=== PATIENT | male | born 1955 | race Caucasian/White ===

== ENCOUNTER 2025-10-05 10:07 | Outpatient (AMB) | payer MEDICARE, BC, SELFPAY ==
--- NOTE | 2025-10-05 10:12 | A.PHYSOV_ITS ---
Vital Signs 10/05/25 10:13 Height 6 ft 1 in Weight 290 lb BMI 38.3 Intake Visit Reasons: Left knee injection Intake Note: Patient is a 70 year old male here for a left knee injection. 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 Allergies No Known Allergies Allergy (Verified 10/05/25 10:15) [facility] Surgical History Hx of tonsillectomy (Unknown) Social History Alcohol intake: current Patient Tobacco Use Status: Former Tobacco user Use of substances other than those prescribed or required for medical reasons: No Physical Exam Vital Signs: BMI result Body Mass Index 38.3 Office Procedures AMB Knee Injection AMB Knee Injection Procedure Details: Left Knee injection: The risks, benefits and complications of the left knee injection were discussed with the patient including but not limited to increased serum glucose, infection, nerve pain, fat atrophy, pigment augmentation, bleeding and pain. All questions were answered to the patient's satisfaction. Verbal consent was obtained. The patient was eager to proceed. Using aseptic technique with Betadine, ethyl chloride was then used to desensitize the skin. Using a 22-gauge needle 40 mg of Kenalog and 3 mL 2% lidocaine were injected into the knee joint. A Band-Aid was applied. Patient tolerated the procedure well without immediate complication. Postinjection instructions were given. Knee Injection - : Left All charges added?: Procedure code (CPT) selection complete Office Meds Kenalog 40 mg/mL suspension for injection Performing Provider: SABA Zimmerman [facility] Administered by: SABA Zimmerman on 10/05/25 10:38 Dose Route Admin Location Dispensed Lot Number Expiration Date [facility] Developmental Education Instructor 40 mg intra-articular 1 mL [id number] [employer] Total Dispensed Waste 1 mL 0 % lidocaine (PF) 20 mg/mL (2 %) injection solution Performing Provider: SABA Zimmerman [facility] Administered by: SABA Zimmerman on 10/05/25 10:38 Dose Route Admin Location Dispensed Lot Number Expiration Date [facility] Developmental Education Instructor 60 mg intra-articular 3 mL [id number] Total Dispensed Waste 3 mL 0 % Assessment & Plan Assessment & Plan (1) Osteoarthritis of left knee: Code(s): M17.12 - Unilateral primary osteoarthritis, left knee Category: Medical Plan Mr. Bridges is a 70-year-old male seen in evaluation today for left knee osteoarthritis. Today consented for left knee corticosteroid injection. He was given post-injection instructions, recommend: Moist heat compresses for 15 minutes 5 times daily. Continue low-impact activities such as walking, biking swimming. Follow-up in our office as needed. Thank you for allowing me to participate in the care of your patient. Orders: Orders AMB Knee Injection Today M17.12 - Unilateral primary osteoarthritis, left knee Coding Level of Care Code Procedure Only Diagnoses Osteoarthritis of left knee M17.12 CPT Codes AMB Knee Injection - Hip/Bursa Injection - : Left ([id number])
[2025-10-05 10:13] VITALS: BMI 38.3
--- OUTSIDE RECORDS SUMMARY | 2025-10-05 12:17 | XMS_ITS | Patient Health Record ---
[facility] Address [address] [facility] [place] [address] Care Team Providers Care Sales Assistant Entertainment [employer] Media Name Role Phone Agrawal, Judi Primary Care Provider Mariya Montanez Unavailable [phone] Allergies Allergen (clinical drug ingredient) Drug/Non Drug Allergy documented on EMR Reaction Allergy Type Onset Date Status Penicillin Unknown Drug Allergy Active Reason For Referral No Information Medications Medication SIG (Take, Route, Frequency, Duration) Notes Start Date End Date Status Omeprazole 20 MG 1 capsule 30 minutes before morning meal Orally Once a day; Duration: 30 day(s) Active Symbicort Active Atorvastatin Calcium 20 MG 1 tablet Oral ly Once a day; Duration: 30 day(s) Active Ammonium Lactate 12 % 1 application to a ffected area Externally to feet Twice a day; Duration: 30 days Active hydroCHLOROthiazide 25 MG 1 tablet in th e morning Orally Once a day; Duration: 30 day(s) Active amLODIPine Besylate 5 MG 1 tablet Orally Once a day; Duration: 30 day(s) Active Social History Tobacco Use: Social History Observation Description Date Details (start date - stop date) Never Smoker NA - NA Tobacco Use/Smoking Question Answer Notes Are you a: nonsmoker Additional Findings: Tobacco Non-User Cu rrent non-smoker, but past smoking history unknown Alcohol Screen Question Answer Notes Did you have a drink containing alcohol in the p ast year? Yes Points 0 Interpretation Negative Tobacco use other than smoking: Question Answer Notes Are you an other tobacco user? No Plan Of Treatment No Information Insurance Providers Payer Name Payer Address Payer Phone Subscriber Number Group Number Insured Name Patient Relationship to Insured Coverage Start Date Coverage End Date Medicare National Govt [facility] [address] [place] [address] [phone] [id number] Celso Bridges Self - patient is the insured [facility] [address] [place] [address] [phone] [id number] Celso Bridges Self - patient is the insured Medical (General) History Medical History History ICD Code asthma Back,Hip,and Knee pain Broken bones Gout High blood pressure Reflux ( GERD) Measles Mumps Chicken pox Surgical History Surgery Date(Month/Year)
--- OUTSIDE RECORDS SUMMARY | 2025-10-05 12:18 | XMS_ITS | Encounter Summary ---
Author Organization [facility] Address [address] [place] [address] Care Team Providers Care Fruit Buying Grader Name Role Phone Shay Narayan Primary Care Provider [phone] Reason for Visit * Reason Onset Date Comments left knee DUROLANE injection 09/17/2025 Encounter Details Date Type Department Care Team ([facility] st Contact Info) Description 09/17/2025 Telephone Orthopedic Surgery - [place] [address] [place] [address] Guera Trujillo [place] Social History Tobacco Use Types Packs/Day Years Used Date Smoking Tobacco: Former Cigarettes 0 Q uit: 11/22/1986 Smokeless Tobacco: Never Alcohol Use Standard Drinks/Week Comments Yes 0 (1 standard drink = 0.6 oz pur e alcohol) Housing Instability Answer Date Recorde d Are you worried that in the next 2 months you may not have stable housing? No 03/09/2025 Food Access & Nutrition Answer Date Rec orded Do you have access to a vari ety of food including fruits and vegetables? Yes 03/09/2025 Access to Healthcare Answer Date Record ed Within the last 3 months, ho w many times did you visit the emergency department for your medical care? 0 03/09/2025 Health Literacy Answer Date Recorded How often do you need to hav e someone help you when you read instructions, pamphlets, or other written material from your doctor or pharmacy? Never 03/09/2025 Caregiver: How often do you need to have someone help you when you read instructions, pamphlets, or other written material from your doctor or pharmacy? Not on file 03/09/2025 Financial Risk Answer Date Recorded How hard is it for you to pa y for the very basics like food, housing, medical care, and air conditioning / heating? Not very hard 03/09/2025 Transportation Answer Date Recorded Has the lack of transportati on kept you from meetings, work, or from getting things needed for daily living? No Has the lack of transportati on kept you from medical appointments or from getting medications? No 03/09/2025 Social Isolation Answer Date Recorded How often do you feel lonely or isolated from th ose around you? Never 03/09/2025 Food Risk Answer Date Recorded Within the past 12 months we worried whether our food would run out before we got money to buy more. Never true 03/09/2025 Within the past 12 months th e food we bought just didn't last and we didn't have money to get more. Never true 03/09/2025 Dependent Care Answer Date Recorded Do you need help finding or paying for care for your loved ones. For example, child welfare caseworker or elderly care for an older adult? No 03/09/2025 Education Answer Date Recorded Do you think completing more education or training, like finishing a GED, going to college, or learning a trade, would be helpful for you? No 03/09/2025 Employment and Income Answer Date Recor ded During the last four weeks, have you been actively looking for work? No 03/09/2025 Living Situation Answer Date Recorded What is your living situation? Unrecognized valu e 03/09/2025 Sex and Gender Information Value Date Recorded Sex Assigned at Male 10/16/2024 4:26 PM EST Legal Sex Male 10:20 AM EST Gender Identity Male 10/16/2024 4:26 PM EST Sexual Orientation Not on file documented as of this encounter Progress Notes * Guera Trujillo [place] - 09/17/2025 9:18 AM EDT Benefits request submitted via [employer], waiting for report. Note: schedule with Alicia (Visco should not be scheduled earlier than first week of November ) documented in this encounter Plan of Treatment Upcoming Encounters Date Type Department Care Team (Late st Contact Info) Description 01/28/2026 8:30 AM EDT Office Visit Pulmonology - [place] [address] [place] [address] Pierre Hilton MD [address] [place] [phone] 03/27/2026 1:00 PM EDT Office Visit Adult Medicine [facility] [address] [place] [address] Shay Narayan PA [address] [place] [phone] documented as of this encounter Visit Diagnoses Not on filedocumented in this encounter Additional Health Concerns Assessment Noted Time PHQ-9 Depression Total Score: 0 03/09/20 2:12 PM EDT A fall risk assessment has been complete d for the patient 03/13/2025 8:57 AM EDT documented as of this encounter Care Teams Fruit Buying Grader Relationship Specialty Start Date End Date Shay Narayan PA [address] [place] [address] PCP - General Internal Medicine 01/11/25 documented as of this encounter
--- OUTSIDE RECORDS SUMMARY | 2025-10-05 12:18 | XMS_ITS | Encounter Summary ---
Author Organization [facility] Address [address] [place] [address] Care Team Providers Care Pc Network Technician Name Role Phone Shay Narayan Primary Care Provider [phone] Encounter Details Date Type Department Care Team ([facility] st Contact Info) Description 08/21/2025 Results Follow-Up Adult [address] [phone] Shay Narayan PA [address] [place] [address] Social History Tobacco Use Types Packs/Day Years [...] for your loved ones. For example, child care associate teacher or elderly care for an older adult? [...] on file documented as of this encounter Plan of Treatment Upcoming Encounters Date Type Department Care Team (Late st Contact Info) Description 01/28/2026 8:30 AM EDT Office Visit Pulmonology - [address] [place] [address] Pierre Hilton MD [address] [place] [address] 03/27/2026 1:00 PM EDT Office Visit Adult Medicine [facility] [address] [place] [address] Shay Narayan PA [address] [place] [phone] documented as of this encounter Visit Diagnoses Not on filedocumented in this encounter Additional Health Concerns Assessment Noted Time PHQ-9 Depression Total Score: 0 03/09/20 2:12 PM EDT A fall risk assessment has been complete d for the patient 03/13/2025 8:57 AM EDT documented as of this encounter Care Teams Pc Network Technician Relationship Specialty Start Date End Date Shay Narayan PA [address] [place] [id number] PCP - General Internal Medicine 01/11/25 documented as of this encounter
--- OUTSIDE RECORDS SUMMARY | 2025-10-05 12:18 | XMS_ITS | Clinical Summary ---
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 TAKE 30 MINS AFTER SAME MEAL EVERY DAY. 90 capsule 025 Active rosuvastatin (CRESTOR) 20 mg tabletIndications:T ype 2 diabetes mellitus without complication, without long-term current use of insulin ([facility] V24, [facility] V28),Essential hypertension,Mixed hyperlipidemia,Manisha roesophageal reflux disease without esophagitis,Mild persistent asthma without complication,Morbid obesity ([facility] V24, [facility] V28),Benign prostatic hyperplasia with post-void dribbling,Elevated LFTs,Nonspecific elevation of levels of transaminase or lactic acid dehydrogenase (LDH) Take 1 tablet (20 mg total) by mouth 1 (one) time each day. 90 tablet 3 025 Active tirzepatide (Mounjaro) 2.5 mg/0.5 mL injectionIndication s:Type 2 diabetes mellitus without complication, without long-term current use of insulin ([facility] V24, [facility] V28),Essential hypertension,Mixed hyperlipidemia,Manisha roesophageal reflux disease without esophagitis,Mild persistent asthma without complication,Morbid obesity ([facility] V24, [facility] V28),Benign prostatic hyperplasia with post-void dribbling,Elevated LFTs,Nonspecific elevation of levels of transaminase or lactic acid dehydrogenase (LDH),Essential (primary) hypertension Inject 0.5 mL (2.5 mg total) under the skin every 7 (seven) days. 6 mL 3 025 Active omeprazole (PriLOSEC) [address] capsule Take 1 capsule (20 mg total) by mouth 1 (one) time each day. 90 capsule 3 025 Active amLODIPine (NORVASC) 5 mg tablet Take 1 tablet (5 mg total) by mouth 1 (one) time each day. 90 tablet 3 025 Active hydroCHLOROthiazide (HYDRODIURIL) 25 mg tabletIndications:E ssential (primary) hypertension Take 1 tablet (25 mg total) by mouth 1 (one) time each day. 90 tablet 3 025 Active budesonide-formoter oL (Symbicort) 160-4.5 mcg/actuation inhaler Inhale 2 Puffs into the lungs every 12 hours for 90 days. This medication has inhaler steroid: Rinse mouth with water and expectorate after each dose to prevent oral/esophage al candidiasis or fungal infection. 023 2024 Discontinued tirzepatide (Mounjaro) 2.5 mg/0.5 mL injection Inject 2.5 mg into the skin once a week. 024 2024 Discontinued(R eorder) omeprazole (PriLOSEC) [address] capsule TAKE 1 CAPSULE BY MOUTH DAILY. 90 capsule 3 025 2024 Discontinued(R eorder) rosuvastatin (CRESTOR) 20 mg tabletIndications:T ype 2 diabetes mellitus without complication, without long-term current use of insulin ([facility] V24, [facility] V28),Essential hypertension,Mixed hyperlipidemia,Manisha roesophageal reflux disease without esophagitis,Mild persistent asthma without complication,Morbid obesity ([facility] V24, [facility] V28),Benign prostatic hyperplasia with post-void dribbling,Elevated LFTs,Nonspecific elevation of levels of transaminase or lactic acid dehydrogenase (LDH) Take 1 tablet (20 mg total) by mouth 1 (one) time each day. 90 tablet 3 025 2024 Discontinued(R eorder) hydroCHLOROthiazide (HYDRODIURIL) 25 mg tabletIndications:E ssential (primary) hypertension TAKE 1 TABLET BY MOUTH EVERY DAY 90 tablet 1 025 2024 Discontinued(R eorder) amLODIPine (NORVASC) 5 mg tablet TAKE 1 TABLET BY MOUTH EVERY DAY 90 tablet 1 025 2024 Discontinued(R eorder) Active Problems Problem Noted Date Diagnosed Date Benign prostatic hyperplasia with post-void drib mark 07/06/2023 Type 2 diabetes mellitus wit hout complication, without long-term current use of insulin ([facility] V24, [facility] V28) 08/24/2022 Bilateral sensorineural hearing loss 05/19/2022 Essential hypertension 08/22/2021 Mild persistent asthma without complication 08/22 Scarring of lung 09/07/2019 Chronic cough 01/05/2018 RICH (obstructive sleep apnea) 04/29/2017 Positive methacholine challenge 10/12/2016 Morbid obesity ([facility] V24, [facility] V28) 2012 Overview (10/18/2024): BMI 44.21 on 09/29/13. GERD (gastroesophageal reflux disease) 2 Overview (10/18/2024): Upper endos Small erosions Dr delarosa advises indefinite ppi Mixed hyperlipidemia 10/25/2005 Encounters Date Type Department Care Team Description 09/24/2025 8:00 AM EST Office Visit Adult Medicine [address] [phone] Shay Narayan PA Type 2 diabetes mellitus without complication, without long-term current use of insulin ([facility] V24, [facility] V28) (Primary Dx); Essential hypertension; Mixed hyperlipidemia; Gastroesophageal reflux disease without esophagitis; Mild persistent asthma without complication; Morbid obesity ([facility] V24, [facility] V28); Benign prostatic hyperplasia with post-void dribbling; Elevated LFTs; Nonspecific elevation of levels of transaminase or lactic acid dehydrogenase (LDH); Essential (primary) hypertension; Encounter for screening for malignant neoplasm of prostate 09/17/2025 Telephone Orthopedic Surgery - [place] [address] [facility] [address] [place] [phone] Guera Trujillo MA 09/13/2025 9:00 AM EDT Consult Orthopedic Surgery [facility] [address] [facility] [address] [place] [phone] Alicia Vickers NP Primary osteoarthritis of left knee (Primary Dx) 09/11/2025 Telephone Orthopedic Surgery [facility] [address] [facility] [address] [place] [phone] Shanel Murillo 08/27/2025 11:54 AM EDT - 08/27/2025 11:59 PM EDT Hospital Encounter [facility] MRI [address] [place] [phone] Unilateral primary osteoarthritis, left knee; Other meniscus derangements, unspecified lateral meniscus, left knee Discharge Disposition: Home or Self Care 08/23/2025 Telephone Adult Medicine [address] [phone] Shay Narayan PA 08/21/2025 Results Follow-Up Adult Medicine [place] [address] [place] [address] Shay Narayan PA 08/20/2025 Telephone Pulmonology - [place] [address] [facility] [address] [place] [phone] Pierre Hilton MD from Last 3 Months Immunizations Immunization Administration Dates Next Due Influenza Quadravalent, MDCK , 0.5ml, preservative free (Flucelvax) 6mo and older 08/11/2022 Influenza Quadravalent, MDCK , 0.5ml, with preservative (Flucelvax) 6mo and older 08/23/2023,08/26/2021,09/11/2018,08/08 Influenza trivalent, 0.5mL ( Fluzone High-dose) 65yo and older 08/10/2025 Influenza trivalent, 0.5mL, preservative free (Fluarix; FluLaval; Fluzone) ages 6mo and older (Afluria) 3 years and older 09/15/2016,10/01/2015,09/16/2014,09/12,08/30/2011,10/22/2006 Influenza, Unspecified 08/15/2024,2020,07/17/2020,08/17 Pfizer (ages 12 & older) Biv alent, COVID-19 08/23/2023 Pfizer Covid-19 Bivalent, Or iginal + Ba.1 (Non-US Trademark Tracks.byIRNATGoldenSUN Bivalent) 08/11/2022 Pfizer SARS-CoV-2 COVID-19, mRNA, LNP-S, preservative free 08/15/2024 Pneumococcal conjugate 13 va lent (Prevnar 13, PCV13) 2mo and older 08/24/2022 Pneumococcal conjugate 20 va lent (Prevnar 20, PCV 20) 2mo and older 09/07/2023 Pneumococcal polysaccharide 23 valent (Pneumovax 23) 2yo and older 12/03/2016 RSV, bivalent, protein subun it RSVpreF, 0.5mL, Preservative Free (Arexvy) 50yo and older 09/26/2023 Td Tetanus diptheria (Tdvax) 7yo and older 01/05/2018,08/02/1997 Tdap Tetanus diptheria acell ular pertussis (Boostrix; Adacel) 7yo and older 01/23/2008 Zoster recombinant (Shingrix ) 19yo and older 09/04/2019,08/22/2019,06/22/2019,04/24 Surgical History Surgery Date Site/Laterality Comments COLONOSCOPY 07/04/08 [facility] PROCEDURE: HISTORICAL COLONOSCOPY; COMMENT: normal to hepatic flexure; repeat in ten years TONSILLECTOMY PROCEDURE: HISTORICAL TONSILLECTOMY ESOPHAGOGASTRODUODENOSCOPY 07/15/12 [facility] PROCEDURE: [place] ESOPHAGOGASTRODUODENOSCOPY TRANSORAL DIAGNOSTIC; COMMENT: small HH and few small esophageal erosions COLONOSCOPY 03/21/2018 PROCEDURE: HISTORICAL COLONOSCOPY; COMMENT: Dr. Bagley - normal Medical History Medical History Date Comments Obesity, unspecified 10/25/2005 DX:Obesity, unspecified Mixed hyperlipidemia 10/25/2005 DX:Mixed hy perlipidemia Dermatophytosis of nail DX:[place] tophytosis of nail; COMMENT: rt foot toenails treated 2004 Impaired fasting glucose 09/16/2014 DX:Impa ired fasting glucose Family History Medical History Relation Name Comments Prostate cancer Father Diabetes Mother No Known Problems Sister 1 No Known Problems Sister 2 Relation Name Status Comments Father (Age 86) Mother (Age 86) Sister 1 Alive Sister 2 Alive Social History Tobacco Use Types Packs/Day Years Used Date Smoking Tobacco: Former Cigarettes 0 Q uit: 11/22/1986 Smokeless Tobacco: Never Tobacco Cessation:Counseling Given: Not Answered Alcohol Use Standard Drinks/Week Comments Yes 0 [...] Record ed Within the last 3 months, manjeet luis many times did you visit the emergency [...] PM EST Sexual Orientation Not on file Obstetrics History Last Filed Vital Signs Vital Sign Reading Time Taken Comments Blood Pressure 131/70 09/24/2025 8:08 AM EST Pulse 74 09/24/2025 8:08 AM EST Temperature 36.2 C (97.2 F) 09/24/2025 8:08 AM EST Respiratory Rate 15 09/24/2025 8:08 AM EST Oxygen Saturation 96% 09/24/2025 8:08 AM EST Inhaled Oxygen Concentration - - Weight 132 kg (290 lb 12.8 oz) 09/24/2025 8:08 A M EST Height 185.4 cm (6' 1 ) 09/24/2025 8:08 AM EST Body Mass Index 38.37 09/24/2025 8:08 AM EST Plan of Treatment Upcoming Encounters Date Type Department Care Team (Late st Contact Info) Description 01/28/2026 8:30 AM EDT Office Visit Pulmonology - [address] [place] [phone] Pierre Hilton MD [address] [place] [phone] 03/27/2026 1:00 PM EDT Office Visit Adult [address] [phone] Shay Narayan PA [facility] [place] [address] Health Maintenance Due Date Last Done Comments Medicare Annual Wellness Visit 10/31/2022 Diabetes: Annual Foot Exam 09/05/2025 09/05/2024 COVID-19 Vaccine ( season) 2026 08/10/2025, 08/15/2024, 08/23/2023, Additional history exists Diabetes: Blood Sugar Control Test (HGBA1C) 02/18/2026 08/21/2025, 02/07/2025, 08/03/2024, Additional history exists Social Influencers of Health Screening 03/09/2026 03/09/2025 Falls Risk Assessment 03/13/2026 03/13/2025 Diabetes: Annual Retina Eye Exam 05/09/2026 05/09/2025, 09/13/2024 Diabetes: Annual Urine Albumin-Creatinine Ratio (uACR) 08/21/2026 08/21/2025, 02/07/2025, 08/03/2024 Diabetes: Annual GFR (Glomerular Filtration Rate) 08/21/2026 08/21/2025, 03/19/2025, 02/07/2025, Additional history exists Hypertension/CHF/CAD Annual BMP Blood Test 08/21/2026 08/21/2025, 03/19/2025, 02/07/2025, Additional history exists DTaP,Tdap,and Td Vaccines (4 - Td or Tdap) 01/05/2028 01/05/2018, 01/23/2008, 08/02/1997 Colorectal Cancer Screening: Colonoscopy 03/21/2028 03/21/2018 Cholesterol Screening (Lipid Panel) 08/21/2030 08/21/2025, 02/07/2025, 08/03/2024, Additional history exists Zoster Vaccines Completed 09/04/2019, 1011/2018, 06/22/2019, Additional history exists Abdominal Aortic Aneurysm (AAA) Screen Completed 08/27/2022, 08/27/2022 Pneumococcal Vaccine: 50+ Years Completed 09/07/2023, 08/24/2022, 12/03/2016 RSV Immunization Adult Patients Completed 09/26/2023 Depression Screening Completed 03/09/2025 Hepatitis C Screening Completed 03/19/2025, 015 Influenza Vaccine Completed 08/10/2025, , 08/23/2023, Additional history exists HIB Vaccines Aged Out No longer eligi ble based on patient's age to complete this topic HPV Vaccines Aged Out No longer eligi ble based on patient's age to complete this topic Hepatitis A Vaccines Aged Out No long er eligible based on patient's age to complete this topic Hepatitis B Vaccines Aged Out No long er eligible based on patient's age to complete this topic IPV Vaccines Aged Out No longer eligi ble based on patient's age to complete this topic MMR Vaccines Aged Out No longer eligi ble based on patient's age to complete this topic Meningococcal ACWY Vaccine Aged Out N o longer eligible based on patient's age to complete this topic Meningococcal B Vaccine Aged Out No l onger eligible based on patient's age to complete this topic RSV Immunization Patients Under 20 months Aged Out No longer eligible based on patient's age to complete this topic Varicella Vaccines Aged Out No longer eligible based on patient's age to complete this topic Procedures Procedure Name Priority Date/Time Associated Diagnosis Comments XR KNEE 4+ VIEWS LEFT Routine 09/12/2025 8:54 AM EDT Pain MR KNEE WO CONTRAST LEFT Routine 08/27/2025 12:49 PM EDT Unilateral primary osteoarthritis, left knee Other meniscus derangements, unspecified lateral meniscus, left knee LIPID PANEL WITH REFLEX TO DIRECT LDL Routine 08/21/2025 8:00 AM EDT Type 2 diabetes mellitus without complication, without long-term current use of insulin ([facility] V24, [facility] V28) Essential hypertension Mixed hyperlipidemia Gastroesophageal reflux disease without esophagitis Mild persistent asthma without complication Morbid obesity ([facility] V24, [facility] V28) Benign prostatic hyperplasia with post-void dribbling Elevated LFTs Nonspecific elevation of levels of transaminase or lactic acid dehydrogenase (LDH) MICROALBUMIN CREATININE URINE RATIO Routine 08/21/2025 8:00 AM EDT Type 2 diabetes mellitus without complication, without long-term current use of insulin ([facility] V24, [facility] V28) Essential hypertension Mixed hyperlipidemia Gastroesophageal reflux disease without esophagitis Mild persistent asthma without complication Morbid obesity ([facility] V24, [facility] V28) Benign prostatic hyperplasia with post-void dribbling Elevated LFTs Nonspecific elevation of levels of transaminase or lactic acid dehydrogenase (LDH) COMPREHENSIVE METABOLIC PANEL Routine 08/21/2025 8:00 AM EDT Type 2 diabetes mellitus without complication, without long-term current use of insulin ([facility] V24, [facility] V28) Essential hypertension Mixed hyperlipidemia Gastroesophageal reflux disease without esophagitis Mild persistent asthma without complication Morbid obesity ([facility] V24, [facility] V28) Benign prostatic hyperplasia with post-void dribbling Elevated LFTs Nonspecific elevation of levels of transaminase or lactic acid dehydrogenase (LDH) HEMOGLOBIN A1C Routine 08/21/2025 8:00 AM EDT Type 2 diabetes mellitus without complication, without long-term current use of insulin ([facility] V24, [facility] V28) Essential hypertension Mixed hyperlipidemia Gastroesophageal reflux disease without esophagitis Mild persistent asthma without complication Morbid obesity ([facility] V24, [facility] V28) Benign prostatic hyperplasia with post-void dribbling Elevated LFTs Nonspecific elevation of levels of transaminase or lactic acid dehydrogenase (LDH) HEPATITIS PANEL, ACUTE WITH REFLEX TO CONFIRMATION Routine 03/19/2025 8:20 AM EDT Type 2 diabetes mellitus without complication, without long-term current use of insulin ([facility] V24, [facility] V28) Essential hypertension Mixed hyperlipidemia Gastroesophageal reflux disease without esophagitis Mild persistent asthma without complication Morbid obesity ([facility] V24, [facility] V28) Benign prostatic hyperplasia with post-void dribbling Elevated LFTs DIABETES EYE EXAM Routine 09/13/2024 DIABETES FOOT EXAM Routine 09/05/2024 US ABDOMINAL AORTA REAL TIME SCREEN STUDY AAA Routine 08/27/2022 8:17 AM EDT Encounter for screening for cardiovascular disorders HM COLONOSCOPY Routine 03/21/2018 from Last 3 Months or Most Recently Relevant to Health Maintenance Results * XR Knee 4+ Views Left (09/12/2025 8:54 AM EDT) Anatomical Region Laterality Modality Lower Extremities, Knee Left Computed Radiography Narrative 09/13/2025 9:57 AM EDT Date of Visit: 09/12/2025 Reason for visit: Left knee pain Views: AP, Lateral, Gibbs, [place] left knee Findings: 4 views of the left knee show mild to moderate narrowing through the medial compartment with early subchondral sclerosis. No significant osteophyte formation. Moderate degenerative changes to the patellofemoral compartment with joint space narrowing. No acute findings. Impression: Mild bordering moderate degenerative changes left knee Alicia Vickers NP IMG XR PROCEDURES Final Result * MR Knee wo Contrast Left (08/27/2025 12:49 PM EDT) Anatomical Region Laterality Modality Lower Extremities, Knee Left Magnetic Resonance 08/28/2025 3:56 AM EDT Impressions 08/28/2025 4:03 AM EDT 1. Grade 1 MCL sprain 2. Tricompartmental degenerative changes, greatest in the medial tibiofemoral and patellofemoral compartments -------- FINAL REPORT -------- Dictated By: Sonia Figueroa Dictated Date: 08/28/2025 03:56 ET Assigned Physician: Sonia Figueroa Reviewed and Electronically Signed By: Sonia Figueroa Signed Date: 08/28/2025 04:03 ET Workstation ID: [id number] Transcribed By: Self Edit Transcribed Date: 08/28/2025 03:56 ET Narrative 08/28/2025 4:03 AM EDT INDICATION: left knee pain COMPARISON: None TECHNIQUE: Multiplanar, multisequence MRI examination was performed of the LEFT knee without intravenous contrast. FINDINGS: Menisci:No medial or lateral meniscal tear. Ligaments:Grade 1 MCL sprain. ACL, PCL and LCL complex are intact. Tendons:Mild quadriceps and patellar tendinosis. Popliteus tendon is intact. Bones:No acute fracture or dislocation. Mild medial hypertrophic lipping. Cartilage: Patellofemoral:Greater than 50% cartilage thinning at the junction of the medial patellar facet and median ridge. Greater than 50% cartilage thinning of the medial trochlear articular facet extending to the central trochlea. Medial tibiofemoral:Near full-thickness cartilage loss involving the weightbearing portion of the medial femoral condyle. Lateral tibiofemoral:Preserved Miscellaneous:Left knee joint fluid. Focal fluid signal along the proximal tibia-fibula articulation in keeping with a ganglion. Semimembranosus tendinosis. Procedure Note Sonia Figueroa MD - 08/28/2025 INDICATION: left knee pain COMPARISON: None TECHNIQUE: Multiplanar, multisequence MRI examination was performed ofthe LEFT knee without intravenous contrast. FINDINGS: Menisci:No medial or lateral meniscal tear. Ligaments:Grade 1 MCL sprain. ACL, PCL and LCL complex are intact. Tendons:Mild quadriceps and patellar tendinosis. Popliteus tendon isintact. Bones:No acute fracture or dislocation. Mild medial hypertrophiclipping. Cartilage: Patellofemoral:Greater than 50% cartilage thinning at the junction of themedial patellar facet and median ridge. Greater than 50% cartilagethinning of the medial trochlear articular facet extending to the centraltrochlea. Medial tibiofemoral:Near full-thickness cartilage loss involving theweightbearing portion of the medial femoral condyle. Lateral tibiofemoral:Preserved Miscellaneous:Left knee joint fluid. Focal fluid signal along theproximal tibia-fibula articulation in keeping with a ganglion.Semimembranosus tendinosis. IMPRESSION: 1. Grade 1 MCL sprain 2. Tricompartmental degenerative changes, greatest in the medialtibiofemoral and patellofemoral compartments -------- FINAL REPORT -------- Dictated By: Sonia Figueroa Dictated Date: 08/28/2025 03:56 ET Assigned Physician: Sonia Figueroa Reviewed and Electronically Signed By: Sonia Figueroa Signed Date: 08/28/2025 04:03 ET Workstation ID: [id number] Transcribed By: Self Edit Transcribed Date: 08/28/2025 03:56 ET us Nhan WALTER IMG MRI PROCEDURES Final Resul t * Lipid panel with reflex to direct LDL (08/21/2025 8:00 AM EDT) Cholesterol 142 0 - 200 mg/dL LAB CHEMISTRY METHOD 08/21/2025 11:22 AM EDT [facility] Triglycerides 119 0 - 150 mg/dL LAB CHEMISTRY METHOD 08/21/2025 11:22 AM EDT [facility] HDL 40 >=40 mg/dL LAB CHEMISTRY METHOD 08/21/2025 11:22 AM EDT [facility] LDL Calculated 78 0 - 100 mg/dL LAB CHEMISTRY METHOD 08/21/2025 11:22 AM EDT [facility] Comment:Estimated LDL Calcul ated using equation: Total cholesterol - HDL cholesterol - (Triglycerides/5) VLDL Cholesterol Iron 23.8 mg/dL LAB CHEMISTRY METHOD 08/21/2025 11:22 AM T [facility] Non HDL Chol. (LDL+VLDL) 102 <145 mg/dL LAB CHEMISTRY METHOD 08/21/2025 11:22 AM EDT [facility] Chol/HDL Ratio 3.6 0.0 - 4.4 LAB CHEMISTRY METHOD 08/21/2025 11:22 AM T [facility] Blood Venous blood specimen / Unknown Venipuncture / Unknown 08/21/2025 8:00 AM EDT 08/21/2025 8:00 AM EDT Shay WALTER LAB BLOOD ORDERABLES Radha l Result [facility] [address] [place] [address], [place] [phone] * Microalbumin creatinine urine ratio (08/21/2025 8:00 AM EDT) Creatinine, Urine 119.0 mg/dL LAB CHEMISTRY METHOD 08/21/2025 11:58 AM EDT [facility] Microalb, Ur <5.0 0.0 - 29.0 mg/L LAB CHEMISTRY METHOD 08/21/2025 11:58 AM EDT [facility] Microalb/Creat Ratio <4 <30 mg/g creat LAB CHEMISTRY METHOD 08/21/2025 11:58 AM EDT [facility] Urine Urine specimen obtained by clean catch procedure / Unknown Non-blood Collection / Unknown 08/21/2025 8:00 AM EDT 08/21/2025 8:00 AM EDT Shay WALTER LAB URINE ORDERABLES Radha l Result [facility] [address] [place] [address], [place] [phone] * Hemoglobin A1c (08/21/2025 8:00 AM EDT) Hemoglobin A1C 5.8 <6.5 % LAB CHEMISTRY METHOD 08/21/2025 11:43 AM EDT [facility] Mean Bld Glu Estim. 120 mg/dL LAB CHEMISTRY METHOD 08/21/2025 11:43 AM EDT [facility] Blood Venous blood specimen / Unknown Venipuncture / Unknown 08/21/2025 8:00 AM EDT 08/21/2025 8:00 AM EDT Shay WALTER LAB BLOOD ORDERABLES Radha l Result [facility] [address] [place] [address], * (ABNORMAL) Comprehensive metabolic panel (08/21/2025 8:00 AM EDT) Sodium 137 133 - 145 mmol/L LAB CHEMISTRY METHOD 08/21/2025 11:22 AM [facility] Potassium 4.1 3.5 - 5.5 mmol/L LAB CHEMISTRY METHOD 08/21/2025 11:22 AM [facility] Chloride 102 96 - 110 mmol/L LAB CHEMISTRY METHOD 08/21/2025 11:22 AM [facility] CO2 27 21 - 32 mmol/L LAB CHEMISTRY METHOD 08/21/2025 11:22 AM [facility] Anion Gap 8 3 - 11 LAB CHEMISTRY METHOD 08/21/2025 11:22 AM [facility] Glucose 113(H) 70 - 100 mg/dL LAB CHEMISTRY METHOD 08/21/2025 11:22 AM [facility] BUN 14 5 - 25 mg/dL LAB CHEMISTRY METHOD 08/21/2025 11:22 AM [facility] Creatinine 0.86 0.70 - 1.30 mg/dL LAB CHEMISTRY METHOD 08/21/2025 11:22 AM [facility] eGFR 94 >=60 mL/min/1. 73m2 LAB CHEMISTRY METHOD 08/21/2025 11:22 AM [facility] Comment:Calculation based on the Chronic Kidney Disease Epidemiology Collaboration (CKD-EPI) equation refit without adjustment for race. BUN/Creatinine Ratio 16.3 LAB CHEMISTRY METHOD 08/21/2025 11:22 AM [facility] Calcium 9.8 8.5 - 10.5 mg/dL LAB CHEMISTRY METHOD 08/21/2025 11:22 AM [facility] AST (SGOT) 15 10 - 42 unit/L LAB CHEMISTRY METHOD 08/21/2025 11:22 AM EDT [facility] ALT (SGPT) 49 10 - 60 unit/L LAB CHEMISTRY METHOD 08/21/2025 11:22 AM EDT [facility] Alkaline Phosphatase 101 42 - 121 unit/L LAB CHEMISTRY METHOD 08/21/2025 11:22 AM T [facility] Total Protein 7.7 6.0 - 8.0 g/dL LAB CHEMISTRY METHOD 08/21/2025 11:22 AM EDT [facility] Albumin 4.2 3.2 - 5.0 g/dL LAB CHEMISTRY METHOD 08/21/2025 11:22 AM EDT [facility] Total Bilirubin 0.6 0.0 - 1.4 mg/dL LAB CHEMISTRY METHOD 08/21/2025 11:22 AM [facility] Blood Venous blood specimen / Unknown Venipuncture / Unknown 08/21/2025 8:00 AM EDT 08/21/2025 8:00 AM EDT us Shay WALTER LAB BLOOD ORDERABLES Radha echavarria Result [facility] [address] [place] [address], * Hepatitis panel, acute with reflex to confirmation (03/19/2025 8:20 AM EDT) Hepatitis B Surface Ag Negative Negative LAB CHEMISTRY METHOD 03/19/2025 4:44 PM EDT [facility] Hepatitis A Antibody IgM Negative Negative LAB CHEMISTRY METHOD 03/19/2025 4:44 PM EDT [facility] Hep B Core IgM Negative Negative LAB CHEMISTRY METHOD 03/19/2025 4:44 PM EDT [facility] Hepatitis C Antibody Negative Negative LAB CHEMISTRY METHOD 03/19/2025 4:44 PM EDT [facility] Blood Venous blood specimen / Unknown Venipuncture / Unknown 03/19/2025 8:20 AM EDT 03/19/2025 8:20 AM EDT Shay WALTER LAB BLOOD ORDERABLES Radha l Result [facility] [address] [place] [address], [place] [phone] * Diabetes Eye Exam (09/13/2024) Diabetes: Annual Retina Eye Exam ABSTRACTED Historical Provider MD HEALTH MAINTENANCE Final Result * Diabetes Foot Exam (09/05/2024) Pathologist [facility] Diabetes: Annual Foot Exam ABSTRACTED Historical Provider MD HEALTH MAINTENANCE Final Result * US ABDOMINAL AORTA REAL TIME SCREEN STUDY AAA (08/27/2022 8:17 AM EDT) Anatomical Region Laterality Modality Ultrasound 08/24/2022 9:28 AM EDT Narrative 08/27/2022 9:36 AM EDT Ultrasound of the abdominal aorta. History screening for AAA. Examination is limited due to patient's body habitus. There is no evidence of abdominal aortic aneurysm. Proximal aorta measures 2.8 cm, mid aorta measures 2.1 cm, distal aorta measures 2 cm. Proximal right common iliac artery measures 1.3 cm, proximal left common iliac artery measures 1.2 cm. CONCLUSIONS: Limited by body habitus examination. No evidence of AAA. Procedure Note Francie Hernandez MD - 11/10/2022 Ultrasound of the abdominal aorta. History screening for AAA. Examination is limited due to patient's body habitus. There is noevidence of abdominal aortic aneurysm. Proximal aorta measures 2.8 cm, mid aorta measures 2.1 cm,distal aorta measures 2 cm. Proximal right common iliac artery measures 1.3 cm, proximal leftcommon iliac artery measures 1.2 cm. CONCLUSIONS: Limited by body habitus examination. No evidence of AAA. Judi RIGGINS US PROCEDURES Final Result * Colonoscopy (03/21/2018) Colonoscopy NO INTERPRETATION , ABSTRACTED Anatomical Region Laterality Modality Other us Historical Provider HEALTH MAINTENANCE Final Result from Last 3 Months or Most Recently Relevant to Health Maintenance Insurance MEDICARE [facility] Care Teams [employer] Relationship Specialty Start Date End Date Shay Narayan PA [address] [place] [address] PCP - General Internal Medicine 01/11/25
== END 2025-10-05 10:41 | disposition home or self-care (01) ==
LOC: HO.HPHYS 10:07
PROVIDERS: PCP Internal Medicine; Visit Provider Physician Assistant
DX: M17.12 Unilateral primary osteoarthritis, left knee (principal)
CPT/HCPCS: 20610

== ENCOUNTER → 2025-10-05 10:07 | Outpatient (BNVA) | payer MEDICARE, BC, SELFPAY | PROVIDERS: PCP Internal Medicine; Visit Provider Physician Assistant | DX: M17.12 Unilateral primary osteoarthritis, left knee (principal) | CPT/HCPCS: 20610; J2003; J3301 ==